=== PATIENT | male | born 1955 | race Hispanic/Latino ===

== ENCOUNTER 2021-06-04 09:28 | Outpatient (CLI) | payer MEDICARE ==
[2021-06-04 10:43] LABS: Blood Urea Nitrogen 7 mg/dL (9-20)
--- NOTE | 2021-06-04 23:52 | Cat Scan Report ---
CTA CHEST, ABDOMEN, AND PELVIS WITH CONTRAST INDICATION / CLINICAL INFORMATION: R06.00 DYSPNEA,UNSPECIFIED OMNI 350 100 ML. TECHNIQUE: Axial CT images were obtained through the chest, abdomen, and pelvis after injection of 100 cc of Omn ipaque 350 IV contrast. 3 plane MIP and/or 3D reconstructions were produced. All CT scans at this [facility] ation are performed using CT dose reduction for ALARA by means of automated exposure control. COMPARISON: None available. FINDINGS: HEART: Heart size is within normal limits with mild three-vessel coronary artery calcifications. No p ericardial effusion. THORACIC AORTA: Mild atherosclerotic calcification without acute abnormality. The ascending aorta balaji sures a maximum diameter of 3.5 cm. No aneurysm or dissection. GREAT VESSELS: No significant abnormality. PULMONARY ARTERIES: No significant abnormality. No evidence for pulmonary embolus. ADDITIONAL CHEST FINDINGS: Severe bullous emphysematous changes are seen bilaterally. There is focal subpleural scarring in the posterior right upper lobe measuring up to 2.4 x 1.2 cm. There is an ill-d efined density in the anterior right middle lobe measuring 6 mm. There is consolidation in the superi or segment of the left lower lobe measuring up to 6.3 x 3.9 cm in axial plane. There appears to be a cavitating lesion with fluid level within the consolidation measuring up to 2.5 cm. Necrotic mass or infectious process such as fungal disease/pulmonary abscess cannot be excluded. There is no evidence for significant pleural fluid or pneumothorax. ABDOMINAL AORTA: Mild to moderate partially calcified plaques are identified in the distal aorta. No evidence for stenosis, dissection or aneurysm. RENAL ARTERIES: Dual renal arteries are seen bilaterally. No significant atherosclerotic disease or s tenosis. CELIAC ARTERY: Normal variant is identified. The left gastric artery arises from the aorta and appear s widely patent. The splenic artery and common hepatic artery arises from the celiac trunk and are pa tent and unremarkable. SUPERIOR MESENTERIC ARTERY: There is mild partially calcified plaque in the proximal SMA but no signi ficant stenosis. INFERIOR MESENTERIC ARTERY: No significant abnormality. RIGHT ILIAC ARTERIES: Mild partially calcified plaques in the common iliac artery without stenosis. T he internal and external iliac arteries are unremarkable.. LEFT ILIAC ARTERIES: Mild partially calcified plaques in the common iliac artery without stenosis. Th e internal and external iliac arteries are unremarkable.. ADDITIONAL ABDOMINOPELVIC FINDINGS: No significant abnormality. The abdominal and pelvic viscera are unremarkable. 3.1 cm cyst in the mid right kidney is noted. No acute process, mass or adenopathy. SKELETAL STRUCTURES: Mild osteopenia. No fracture or suspicious bony lesion. Mild degenerative change s in the lower lumbar spine. IMPRESSION: Essentially unremarkable CTA of the chest, abdomen and pelvis. Mild to moderate atherosclerotic disea se is noted in the distal aorta and common iliac arteries but no evidence for stenosis, dissection or aneurysm. No central pulmonary embolus. Severe emphysematous changes. There is consolidation in the superior segment of the left lower lobe w ith apparent underlying 2.5 cm cavitating lesion. An infectious or neoplastic process cannot be exclu ded. Please correlate with the patient's clinical presentation. Signer Name: Renato Becerra Jr, MD Signed: 06/04/2021 12:31 PM Workstation Name: [id number]
== END 2021-06-04 09:29 | disposition home or self-care (01) ==
LOC: CT 09:28
PROVIDERS: ATTEND Community Health Worker
DX: N28.1 Cyst of kidney, acquired (principal); J43.9 Emphysema, unspecified; R06.00 Dyspnea, unspecified; I25.10 Atherosclerotic heart disease of native coronary artery without angina pectoris; I70.0 Atherosclerosis of aorta; M47.816 Spondylosis without myelopathy or radiculopathy, lumbar region; M85.88 Other specified disorders of bone density and structure, other site; I74.3 Embolism and thrombosis of arteries of the lower extremities
CPT/HCPCS: 36415; 71275; 74174; 82565; 84520; Q9967